=== PATIENT | female | born 1995 | race Caucasian/White ===

== ENCOUNTER 2018-10-05 10:27 | Observation (INO) ==
[2018-10-05] MEDS ORDERED: KETOROLAC 15 MG/1 ML VIAL IVP PRN (11:01)
[2018-10-05] MEDS ORDERED: ONDANSETRON 4 MG/2 ML VIAL IVP PRN (11:01)
[2018-10-05] MEDS ORDERED: Prochlorperazine Edisylate Inj 10mg/2ml vial IVP ONE (11:01)
[2018-10-05] MEDS ORDERED: LIDOCAINE W/ SODIUM BICARB 0.5 ML SYR SUBD PRN (11:01)
[2018-10-05] MEDS ORDERED: CALCIUM CARBONATE 500 MG (TUMS) CHEWABLE TABLET PO PRN (11:01)
[2018-10-05] MEDS ORDERED: ACETAMINOPHEN 325 MG TABLET PO PRN (11:01)
[2018-10-05] MEDS ORDERED: DOCUSATE 100 MG CAPSULE PO PRN (11:01)
[2018-10-05] MEDS ORDERED: DEXAMETHASONE PF 10 MG/1 ML VIAL IVP ONE (11:04)
[2018-10-05] MEDS ORDERED: Sodium Chloride 0.9% 1,000 ML PRIMARY IV SCH (11:15)
[2018-10-05 11:34] VITALS: RESP 20
[2018-10-05 12:46] LABS: BASOPHILS # (AUTO) 0.12 10*3/UL; BASOPHILS % (AUTO) 3.2 % (0-1); EOSINOPHILS # (AUTO) 0.08 10*3/UL; EOSINOPHILS % (AUTO) 2.1 % (0-8); Hematocrit [HCT] 42.7 % (37.0-47.0); Hemoglobin [HGB] 14.6 g/dL (12.0-16.0); LYMPHOCYTES # (AUTO) 1.72 10*3/uL; MEAN CORPUSCULAR HEMOGLOBIN 30.9 PG (27-31); MEAN CORPUSCULAR HGB CONC 34.2 g/dL (33-37); MEAN CORPUSCULAR VOLUME 90.5 FL (81-99); MEAN PLATELET VOLUME 10.4 FL (7.4-12.2); MONOCYTES # (AUTO) 0.36 10*3/UL (0.3-0.8); MONOCYTES % (AUTO) 9.6 % (5-15); NEUTROPHILS # (AUTO) 1.48 10*3/UL; NEUTROPHILS % (AUTO) 39.4 % (50-80); RED BLOOD COUNT 4.72 10^6/uL (4.20-5.40)
[2018-10-05] MEDS ORDERED: LORazepam 2 MG/1 ML VIAL IVP ONE (13:07)
[2018-10-05 13:14] LABS: WBC MORPHOLOGY COMMENT SEE COMMENTS (NORM)
[2018-10-05 13:15] LABS: PLATELET MORPHOLOGY COMMENT SEE COMMENTS (NORM); RBC MORPHOLOGY COMMENT SEE COMMENTS (NORM)
--- NOTE | 2018-10-05 14:03 | PDOC ---
HPI - History of Present Illness Date of Service: 10/05/18 Time of Service: 13:58 Chief Complaint: Headache History of Present Illness: This very pleasant 23-year-old female that resides in [place], [place], that is accompanied here by her today with complaints of a headache that's persisted for about a week. She states this all started about a week ago with nausea and vomiting and diarrhea and abdominal upset. She woke up sometime last Wednesday with a fever at around 102 103, went in for evaluation in [place], and also noted that she had a headache. She had an abdominal CAT scan and a head CT scan I am told that were negative. They sent her to the [facility] emergency room for an LP and she was negative for meningitis. Her glucose and protein were within the normal levels and she had no white blood cells. The fevers abated, but she continues to have severe occipital headaches, associated with photophobia and nausea. They're constant and it feels like a throbbing headache. The patient actually described it as if someone was shoving and elbow in the back of her head. She's never had headaches like this before. She st ates that when she stands up or moves around, the headache seems to be much worse and she feels like she is going to have nasal drainage. She does note a history of prior sinus problems due to an incompletely formed nasal septum and nasal polyps but she states she hasn't had problems like that since she was in eighth grade. She states that Tylenol, Motrin, ice packs, baths, showers, and sleeping the headache through have not worked. She tried a blood patch and that did not work. She states that there is a history of her mother having migraine headaches. No reported history of cerebral aneurysm in the family. The patient saw her primary physician, Dr. Conde, who asked to see if I would be willing to directly admit the patient to see if we can help this intractable headache thus far. Past Medical History Medical History: No chronic medical conditions at this time. Surgical History: 1. Tonsillectomy and adenectomy. 2. Sinus surgery 6. 3. Carpal tunnel release last year Pertinent Family History: Patient states that her family history significant for coronary artery disease and diabetes and that her mother had migraine headaches. Past Social History: Does not smoke or drink alcohol. . Has one child described as healthy. Lives in [place], [place]. Tobacco Use: Never Smoker In the Past 12 Months, Have Used or Abuse Any of the Following Substance: None Alcohol Use: None Medication / Allergies Home Medications: Home Medications Medication Instructions Recorded Confirmed NK 10/05/18 10/05/18 Allergies/Adverse Reactions: Allergies Allergy/AdvReac Type Severity Reaction Status Date / Time No Known Allergies Allergy Verified 10/05/18 08:41 Review of Systems - Review of Systems All Systems: Reviewed & No Additional Complaints Except as Stated (I did a 12 point review systems and it was negative other than that discussed below and in the history of present illness.) Exam - Vitals Vital Signs: Vital Signs Temperature 97.1 F Temperature Source Temporal Artery Scan Pulse Rate [Pulse Oximeter] 81 Respiratory Rate 20 Blood Pressure [Right Arm] 109/66 Pulse Ox 97 Oxygen Delivery Method Room Air Height 5 ft 7 in Weight 139 lb 6 oz - General General Appearance: No Acute Distress, Cooperative - Head Head Exam: Normal Inspection, Normocephalic, Atraumatic - Eye Eye Exam: POSITIVE: No Scleral Icterus - ENT ENT Exam: POSITIVE: Mucous Membranes Moist - Neck Neck Exam: Normal Inspection, No Tenderness, No Lymphadenopathy, No Thyromegaly, JVP is not Raised - Respiratory Respiratory Exam: POSITIVE: Clear to Auscultation - Bilaterally, Breathing Non Labored, Normal to Percussion and Palpation - Cardiovascular Cardiovascular Exam: POSITIVE: RRR, No Murmur, No Clicks, No Gallops, No Rubs, No JVD - GI/Abdominal GI/Abdominal Exam: POSITIVE: Normal Bowel Sounds, Non Tender, Non Distended, Soft - Rectal Rectal Exam: POSITIVE: Deferred - External Exam: POSITIVE: Deferred Exam: POSITIVE: Deferred - Extremities Extremities Exam: POSITIVE: No Clubbing Present, No Edema Present, No Cyanosis Present - Back Back Exam: POSITIVE: No CVA Tenderness Additional Back Exam Details: In lower back, she has some bruising where her LP was attempted. She has some adhesive material from Band-Aid from blood patch. - Neurological Neurological Exam: POSITIVE: Alert, Oriented x 3, No Facial Droop, Speech Intact / Clear, Moves All Extremities Equally - Psychiatric Psychiatric Exam: POSITIVE: Normal Affect, Normal Mood Results - Labs CBC and BMP: 10/05/18 12:40 - Imaging Status: Image Pending (I have ordered a CT scan of the head which is pending at this time) Assessment and Plan - Patient Problems (1) Headache Current Visit: Yes Status: Acute Code(s): R51 - Headache - Assessment / Plan Additional Assessment/Plan Details: This is an intractable headache that sounds to me on description to have components of both tension and migraine headaches with the headache being centered at the occiput, but has photophobia and nausea accompanied with it. In addition this is been an unrelenting headache that's lasted for several days. I do not think this is a spinal headache. She did not respond to a blood patch. White blood cell count is slightly depressed. I am not sure that the factors into things but it may be worthwhile to also get a sedimentation rate and a CRP. The CT head scan or in [place], [place], as not as many slices as the CT scanner here so I'll repeat CT of the head to make sure not dealing with a subarachnoid hemorrhage. LP certainly on my review does not suggest meningitis or subarachnoid hemorrhage for that matter. I will go ahead and treat with IV fluids, dose of Decadron and then will go 4 mg twice a day after that, antiemetics, and Toradol. If that does not work then I think we can trial of triptan and see if that will work such as Imitrex. Sometimes with intractable headaches Depakote or fosphenytoin will break the pattern on a dose. If headache persists despite these interventions, then we may also need to consider MRI scan, but I like to see how the patient responds to these medications first. I discussed the above plan with the patient and her and they agreed to proceed as above.
--- NOTE | 2018-10-05 16:21 | DI ---
CT Head WO Contrast,10/05/2018 11:04 AM: Clinical History: Worst headache. Previous Exam: None at this facility. Findings: Multiple helically acquired CT images are obtained through the brain without contrast, and demonstrat e normal, symmetric ventricles and other CSF containing spaces. There is no mass, hemorrhage or midli ne shift. Surrounding soft tissue and osseous structures are unremarkable. Impression: No acute intracranial hemorrhage.
[2018-10-05 18:32] VITALS: BP 113/74; TEMP 97.1; O2SAT 95
[2018-10-05] MEDS ORDERED: SUMAtriptan Tab 25 MG TAB PO ONE (19:31)
--- NOTE | 2018-10-05 19:42 | DCSUMMARY ---
Hospitalization Summary Admit Date: 10/05/2018 Discharge Date: 10/05/18 Primary Diagnosis:: intractable headache, suspect migraine headache Hospital Course: This very pleasant 23-year-old female without any past medical history except for some remote sinus surgeries related to a malformed nasal septum and nasal polyps. She presents with her with complaint of a headache over the last week or so. It followed of gastrointestinal illness. She was negative in terms of workup for viral meningitis. A blood patch did not help. Her headache is been quite severe. We admitted her, give her IV fluids, Toradol, Compazine, and steroids, and her headache went from an intensity of 10 over 10 earlier this morning to an intensity of 2/10 by the time of discharge. She stated that she was able to hold food down. She no longer has any nausea. And she would like to go home. She denies any other complaints or problems. She states that she gets slight pressure in her occiput when she stands up and moves around. Her head CT scan was negative for any acute findings or acute bleed. Given her photophobia, nausea, and tendency for the headache to come over her head and into her eye region, I suspect these could be migraines. I suggested Imitrex, 1 tablet when necessary migraine headache followed by one dose repeated in 2 hours if headache persists. We will give her 125 mg dose prior to discharge her today. We will also complete Medrol Dosepak as the patient has had some high dose steroids here and at like to taper them. I did give her instructions to not take Tylenol and Motrin and/or anti- inflammatories of other kinds because of the potential for rebound headaches. I also advised her to follow with her primary physician. I discussed with her primary physician as well and she agreed with this plan. I told the patient that if she has recurrence of her migraines, she should consider getting an MRI scan and I also believe an MRA scan to look for potential etiologies of headache such as brain tumor and/or vascular issue such as aneurysm. She does not have any first-degree relatives with aneurysm. Assessment and Plan: 1. As per discharge assessments noted 2. Disposition: Patient is discharged home. 3. Condition on discharge, stable and improved. 4. Diet: regular diet 5. Activities: resume normal activities 6. Follow-Up: 1. Dr. Conde in one week 2. 7. Medications at the Time of Discharge: Home Medications Medication Instructions Recorded Confirmed Sumatriptan Succinate [Imitrex] 25 mg PO Q2H PRN #6 tab 10/05/18 methylPREDNISolone Dose Pack 1 each PO ASDIR #1 pkg 10/05/18 [Medrol Dose Pack] This is a same-day admission and discharge. Exam - Vitals Vital Signs: Vital Signs Temperature 97.1 F Temperature Source Temporal Artery Scan Pulse Rate [Pulse Oximeter] 87 Respiratory Rate 20 Blood Pressure [Right Arm] 113/74 Pulse Ox 95 Oxygen Delivery Method Room Air Height 5 ft 7 in Weight 139 lb 6 oz - General General Appearance: No Acute Distress, Cooperative - Head Head Exam: Normal Inspection, Normocephalic, Atraumatic - Eye Eye Exam: POSITIVE: No Scleral Icterus - ENT ENT Exam: POSITIVE: Mucous Membranes Moist - Neck Neck Exam: JVP is not Raised - Respiratory Respiratory Exam: POSITIVE: Clear to Auscultation - Bilaterally, Breathing Non Labored - Cardiovascular Cardiovascular Exam: POSITIVE: RRR, No Murmur, No Clicks, No Gallops, No Rubs, No JVD - GI/Abdominal GI/Abdominal Exam: POSITIVE: Normal Bowel Sounds, Non Tender, Non Distended, Soft - Rectal Rectal Exam: POSITIVE: Deferred - External Exam: POSITIVE: Deferred Exam: POSITIVE: Deferred - Extremities Extremities Exam: POSITIVE: No Clubbing Present, No Edema Present, No Cyanosis Present - Neurological Neurological Exam: POSITIVE: Alert, Oriented x 3, No Facial Droop, Speech Intact / Clear, Moves All Extremities Equally - Psychiatric Psychiatric Exam: POSITIVE: Normal Affect, Normal Mood Data Peritnent Studies: Laboratory Results 10/05/18 12:40 WBC 3.76 L RBC 4.72 Hgb 14.6 Hct 42.7 MCV 90.5 MCH 30.9 MCHC 34.2 RDW Std Deviation 39.8 RDW Coeff of [place] 12.4 Plt Count 237 MPV 10.4 Immature Gran % (Auto) 0 Neut % (Auto) 39.4 L Lymph % (Auto) 45.7 [place] % (Auto) 9.6 Eos % (Auto) 2.1 Baso % (Auto) 3.2 H Immature Gran # (Auto) 0 Neut # (Auto) 1.48 Lymph # (Auto) 1.72 [place] # (Auto) 0.36 Eos # (Auto) 0.08 Baso # (Auto) 0.12 WBC Morphology Comment See comments Plt Morphology Comment See comments RBC Morph Comment See comments Procedures: [address] [facility] [place] [address] PH: DD: [phone] FAX: [phone] ~DIAGNOSTIC IMAGING REPORT~ Patient: CATHI ARIAS : 1995 Sex: F Age: 23 Exam Name: CT Head WO Contrast Exam Date: 10/05/18 Report # : [id number] CPT Code: 15145 EMR/MR #: [id number] Ordering: ROSARIO BECKHAM Admiting: ROSARIO BECKHAM DO Primary: Booker Conde MD. Attending: ROSARIO BECKHAM DO Signed CT Head WO Contrast,10/05/2018 11:04 AM: Clinical History: Worst headache. Previous Exam: None at this facility. Findings: Multiple helically acquired CT images are obtained through the brain without contrast, and demonstrate normal, symmetric ventricles and other CSF containing spaces. There is no mass, hemorrhage or midline shift. Surrounding soft tissue and osseous structures are unremarkable. Impression: No acute intracranial hemorrhage. Dictated By: 10/05/18 1616 SUSAN GOODWIN MD. Signed By: 10/05/18 1621 SUSAN GOODWIN MD. Patient Problems - Patient Problem List (1) Migraine Current Visit: Yes Status: Acute Code(s): G43.909 - Migraine, unspecified, not intractable, without status migrainosus Qualifiers: Migraine type: other Status migrainosus presence: with status migrainosus Intractability: intractable Qualified Code(s): G43.811 - Other migraine, intractable, with status migrainosus Category: Medical (2) Headache Current Visit: Yes Status: Acute Code(s): R51 - Headache Category: Medical
== END 2018-10-05 20:00 | disposition home or self-care (01) ==
LOC: MED/SURG → PREINTOOBSV 11:14
PROVIDERS: ADMIT Family Medicine; ATTEND Family Medicine